=== PATIENT | female | born 1955 | race Caucasian/White ===

== ENCOUNTER 2021-04-27 10:53 | Emergency (ER) | payer MEDICARE ==
[~2021-04-27] VITALS: Ht 160 cm; Wt 55.5 kg
[2021-04-27 11:07] VITALS: BP 156/114
[2021-04-27] MEDS ORDERED: ketorolac trometh inj. 60 MG/2 ML VIAL IM ONE (11:10)
[2021-04-27] MEDS ORDERED: PENI250T2 PO (11:12)
[2021-04-27] MEDS ORDERED: NAPR-56 PO (11:12)
== END 2021-04-27 11:25 | disposition home or self-care (01) ==
LOC: ER 10:54
DX: K08.89 Other specified disorders of teeth and supporting structures (principal); M54.5 Low back pain; G89.29 Other chronic pain; R68.84 Jaw pain; Z79.2 Long term (current) use of antibiotics; Z79.899 Other long term (current) drug therapy
CPT/HCPCS: 96372; 99283; J1885